=== PATIENT | female | born 1975 ===

== ENCOUNTER 2017-04-09 17:03 | Emergency (ER) | payer OTHER ==
[2017-04-09 17:08] VITALS: BP 151/91; PULSE 96; RESP 18; TEMP 98.8; O2SAT 100
--- NOTE | 2017-04-09 18:03 | ED PDOC ---
Lower Extremity Pain/Injury Time Seen by Provider: 04/09/17 17:25 Chief Complaint (Nursing): Lower Extremity Problem/Injury Chief Complaint (Provider): Lower Extremity Injury History Per: Patient History/Exam Limitations: no limitations Onset/Duration Of Symptoms: Hrs (8x hours ) Current Symptoms Are (Timing): Still Present Severity: Moderate Additional Complaint(s): 42 year old female with a pertinent medical history of asthma presents to the ED with complaints of right knee pain that started this morning. She states that she was leaving her house this morning to go her work, and she felt her right knee crack which caused her to have pain there all day. She reports that she is able to ambulate with a limp. She denies having any other injuries or complaints. PMD: Past Medical History Reviewed: Historical Data, Nursing Documentation, Vital Signs Vital Signs: Last Vital Signs Temp 98.8 F 04/09/17 17:06 Pulse 96 H 04/09/17 17:06 Resp 18 04/09/17 17:06 BP 151/91 H 04/09/17 17:06 Pulse Ox 100 04/09/17 17:06 - Medical History PMH: Asthma - Surgical History Surgical History: No Surg Hx - Family History Family History: States: No Known Family Hx - Social History Alcohol: None Drugs: Denies - Home Medications Home Medications: Ambulatory Orders Medication Instructions Recorded Naproxen [Naprosyn Tab] 375 mg PO Q8 PRN #21 tab 04/09/17 - Allergies Allergies/Adverse Reactions: Allergies Allergy/AdvReac Type Severity Reaction Status Date / Time No Known Allergies Allergy Verified 04/09/17 17:06 Review of Systems Musculoskeletal: Positive for: Leg Pain (right knee pain) Physical Exam - Reviewed Nursing Documentation Reviewed: Yes Vital Signs Reviewed: Yes - Physical Exam Appears: Positive for: Well, Non-toxic, No Acute Distress Head Exam: Positive for: ATRAUMATIC, NORMOCEPHALIC Skin: Positive for: Normal Color, Warm, Dry Cardiovascular/Chest: Positive for: Regular Rate, Rhythm Respiratory: Positive for: Normal Breath Sounds. Negative for: Respiratory Distress Extremity: Positive for: Normal ROM, Other (mild effusion to the right knee noted. able to flex and extend. no bony tenderness). Negative for: Tenderness, Swelling Neurologic/Psych: Positive for: Alert, Oriented (3x) - ECG O2 Sat by Pulse Oximetry: 100 (RA) Pulse Ox Interpretation: Normal - Progress ED Course And Treament: Knee xry right: no acute fx Placed in knee immobilizer and given crutch instructions. Medical Decision Making Medical Decision Makin:25 Initial impression: 42 year old female with pain in her right knee due to injury. Initial plan: * XRay knee right 3 views * reevaluation Scribe Attestation: Documented by Gena Vela, acting as a scribe for Tanya Heath PA-C. Provider Scribe Attestation: All medical record entries made by the Scribe were at my direction and personally dictated by me. I have reviewed the chart and agree that the record accurately reflects my personal performance of the history, physical exam, medical decision making, and the department course for this patient. I have also personally directed, reviewed, and agree with the discharge instructions and disposition. Disposition - Clinical Impression Clinical Impression: Knee injury - Patient ED Disposition Is Patient to be Admitted: No - Disposition Referrals: [facility] [Outside] Rod Rose III, MD [Staff Provider] - Disposition: Routine/Home Disposition Time: 18:59 Condition: FAIR Prescriptions: Naproxen [Naprosyn Tab] 375 mg PO Q8 PRN #21 tab PRN Reason: Pain, Moderate (4-7) Instructions: Knee Sprain (ED) Forms: [facility] ED School/Work Excuse
--- NOTE | 2017-04-10 10:59 | RAD ---
PROCEDURE: Right Knee Radiographs. HISTORY: Knee injury. Anatomic area of interest: Lateral femoral condylar region COMPARISON: None. FINDINGS: BONES: Normal. No fracture. JOINTS: Normal. No osteoarthritis. JOINT EFFUSION: None. OTHER FINDINGS: None. IMPRESSION: Unremarkable radiographs of the right knee.
== END 2017-04-09 18:59 | disposition home or self-care (01) ==
LOC: H.ER 17:03
DX: S89.92XA Unspecified injury of left lower leg, initial encounter (principal); X50.9XXA Other and unspecified overexertion or strenuous movements or postures, initial encounter; Y92.89 Other specified places as the place of occurrence of the external cause; J45.909 Unspecified asthma, uncomplicated

== ENCOUNTER 2017-04-20 06:33 | Observation (INO) | payer OTHER ==
[2017-04-20 06:50] VITALS: RESP 18
[2017-04-20] MEDS ORDERED: Sodium Chloride 0.9% 1,000 ML IV STA (07:04)
--- NOTE | 2017-04-20 07:17 | ED PDOC ---
Lower Extremity Pain/Injury Time Seen by Provider: 04/20/17 06:58 Chief Complaint (Nursing): Lower Extremity Problem/Injury Chief Complaint (Provider): Right Knee Injury History Per: Patient History/Exam Limitations: no limitations Onset/Duration Of Symptoms: Days (x10) Current Symptoms Are (Timing): Still Present Additional Complaint(s): Adelina Castillo is a 42 year old female with a history of asthma that presents to the ED status post injury to the right knee that occurred ten days ago. Patient reports that she has a torn meniscus and is complaining of right knee pain. Past Medical History Reviewed: Historical Data, Nursing Documentation, Vital Signs Vital Signs: Last Vital Signs Temp 98.1 F 04/20/17 06:43 Pulse 80 04/20/17 06:43 Resp 18 04/20/17 06:43 BP 119/82 04/20/17 06:43 Pulse Ox 100 04/20/17 06:43 - Medical History PMH: Asthma - Surgical History Surgical History: No Surg Hx - Family History Family History: States: Unknown Family Hx - Social History Current smoker - smoking cessation education provided: No Alcohol: None Drugs: Denies - Home Medications Home Medications: Ambulatory Orders Medication Instructions Recorded Naproxen [Naprosyn Tab] 375 mg PO Q8 PRN #21 tab 04/09/17 - Allergies Allergies/Adverse Reactions: Allergies Allergy/AdvReac Type Severity Reaction Status Date / Time No Known Allergies Allergy Verified 04/09/17 17:06 Review of Systems Musculoskeletal: Positive for: Leg Pain (right knee pain due to torn meniscus) Physical Exam - Reviewed Nursing Documentation Reviewed: Yes Vital Signs Reviewed: Yes - Physical Exam Appears: Positive for: Non-toxic, No Acute Distress Head Exam: Positive for: ATRAUMATIC, NORMOCEPHALIC Skin: Positive for: Normal Color, Warm Cardiovascular/Chest: Positive for: Regular Rate, Rhythm. Negative for: Murmur Respiratory: Positive for: Normal Breath Sounds. Negative for: Wheezing Gastrointestinal/Abdominal: Positive for: Normal Exam, Soft. Negative for: Tenderness Back: Positive for: Normal Inspection Extremity: Negative for: Normal ROM (pain on flexion of right knee), Deformity Neurologic/Psych: Positive for: Alert, Oriented. Negative for: Motor/Sensory Deficits - ECG O2 Sat by Pulse Oximetry: 100 (RA) Pulse Ox Interpretation: Normal Medical Decision Making Medical Decision Making: Impression: Right Knee Pain due to Torn Meniscus Plan: * EKG * Chest X-Ray * CMP * CBC * PT/INR * Urine Dip * Urine * Sodium Chloride 1000 mL at 100 mls/hr * Reevaluation Scribe Attestation: Documented by Zara Petersen, acting as a scribe for Arnav Moran MD. Provider Scribe Attestation: All medical record entries made by the Scribe were at my direction and personally dictated by me. I have reviewed the chart and agree that the record accurately reflects my personal performance of the history, physical exam, medical decision making, and the department course for this patient. I have also personally directed, reviewed, and agree with the discharge instructions and disposition. Disposition - Clinical Impression Clinical Impression: Meniscal injury - Patient ED Disposition Is Patient to be Admitted: Yes - Disposition Disposition Time: 07:24 Condition: FAIR - Pt Status Changed To: Hospital Disposition Of: Observation - POA Present On Arrival: None
[2017-04-20 07:41] LABS: BASO # 0.1 K/uL (0.0-0.2); BASO % 0.8 % (0.0-2.0); EOS # 0.2 K/uL (0.0-0.7); EOS % 1.8 % (0.0-4.0); HEMOGLOBIN 12.6 g/dL (12.0-16.0); LYMPH # 2.1 K/uL (1.0-4.3); LYMPH % 21.9 % (20.0-40.0); MEAN CELL VOLUME 80.7 fl (81.0-99.0); MEAN CORPUSCULAR HEMOGLOBIN 26.7 pg (27.0-31.0); MEAN PLATELET VOLUME 10.3 fl (7.2-11.7); MONO # 0.8 K/uL (0.0-0.8); MONO % 8.5 % (0.0-10.0); NEUT # 6.3 K/uL (1.8-7.0); NRBC % 0.1 % (0.0-0.0); RBC 4.73 Mil/uL (3.80-5.20); RED CELL DISTRIBUTION WIDTH 20.3 % (11.5-14.5); WHITE BLOOD COUNT 9.4 K/uL (4.8-10.8)
[2017-04-20 07:54] LABS: ALB/GLOB RATIO 1.3 (1.0-2.1); ALBUMIN 4.2 g/dL (3.5-5.0); ALT/SGPT 44 U/L (9-52); AST/SGOT 38 U/L (14-36); BLOOD UREA NITROGEN 14 mg/dl (7-17); CALCIUM 9.2 mg/dL (8.4-10.2); GFR AFRICAN-AMERICAN > 60; GFR NON-AFRICAN AMERICAN > 60
[2017-04-20 08:02] LABS: INR 0.9 (0.9-1.2); PROTHROMBIN TIME 10.4 Seconds (9.8-13.1)
--- NOTE | 2017-04-20 08:04 | CP.PCM.HP ---
History of Present Illness - History of Present Illness History of Present Illness: 42 y/o female with PMH asthma, anemia presented to ER with right knee pain. She states that she felt her knee crack about 1 week ago coming ourt of her house and since than has been having progressive pain and difficulty with ambulation.She is using crutches to ambulate. She has been taking naproxen for pain relief with little relied . She was evaluated by orthopedist as out patient that diagnosed her with meniscus tear. Today she is complaining of pain to right knee. denies any chest pain , SOB, palpitations, PND, orthopnea, urinary symptoms or changes in bowel movements. last meal yesterday @ 7 PM Allergies ; NKDA PMH ; Asthma, anemia Surgery; Cholecystectomy Medication; Ferrous sulfate, Albuterol PRN family history ; sister has breast cancer, Mother had HTN Social history ; lives in [place] with , has 3 children, works as house keeper, denies any smoking , ETOh or drug abuse, lives in a basement apartment with 4 stairs ROS ; 14 point review of system negative except above Present on Admission - Present on Admission Any Indicators Present on Admission: No Review of Systems - Review of Systems All systems: reviewed and no additional remarkable complaints except Past Patient History - Infectious Disease Hx of Infectious Diseases: None - Tetanus Immunizations Tetanus Immunization: Unknown - Past Medical History & Family History Past Medical History?: No Past Family History: Reviewed and not pertinent - Past Social History Smoking Status: Never Smoked Chewing Tobacco Use: No Cigar Use: No Alcohol: None Drugs: Denies Home Situation {Lives}: With Family Domestic Violence: Negative - CARDIAC Hx Cardiac Disorders: No - PULMONARY Hx Respiratory Disorders: No - NEUROLOGICAL Hx Neurological Disorder: No - HEENT Hx HEENT Problems: No - RENAL Hx Chronic Kidney Disease: No - ENDOCRINE/METABOLIC Hx Endocrine Disorders: No - HEMATOLOGICAL/ONCOLOGICAL Hx Blood Disorders: Yes (Anemia) - INTEGUMENTARY Hx Dermatological Problems: No - MUSCULOSKELETAL/RHEUMATOLOGICAL Hx Musculoskeletal Disorders: No - GENITOURINARY/GYNECOLOGICAL Hx Genitourinary Disorders: No - PSYCHIATRIC Hx Psychophysiologic Disorder: No - SURGICAL HISTORY Hx Surgeries: No - ANESTHESIA Hx Anesthesia: No Meds Allergies/Adverse Reactions: Allergies Allergy/AdvReac Type Severity Reaction Status Date / Time No Known Allergies Allergy Verified 04/09/17 17:06 Physical Exam - Constitutional Appears: Non-toxic, No Acute Distress - Head Exam Head Exam: ATRAUMATIC, NORMAL INSPECTION, NORMOCEPHALIC - Eye Exam Eye Exam: EOMI, Normal appearance, PERRL Pupil Exam: NORMAL ACCOMODATION - ENT Exam ENT Exam: Mucous Membranes Moist, Normal Exam - Neck Exam Neck exam: Positive for: Full Rom, Normal Inspection - Respiratory Exam Respiratory Exam: Clear to Auscultation Bilateral, NORMAL BREATHING PATTERN. absent: Rales, Rhonchi, Wheezes - Cardiovascular Exam Cardiovascular Exam: REGULAR RHYTHM, RRR, +S1, +S2. absent: JVD - GI/Abdominal Exam GI & Abdominal Exam: Normal Bowel Sounds, Soft. absent: Distended, Guarding, Rebound, Tenderness - Rectal Exam Rectal Exam: Deferred - Extremities Exam Extremities exam: Positive for: normal capillary refill, normal inspection, tenderness (to right knee with decreased ROM ), pedal pulses present. Negative for: calf tenderness, pedal edema - Back Exam Back exam: NORMAL INSPECTION - Neurological Exam Neurological exam: Alert, CN II-XII Intact, Oriented x3, Reflexes Normal - Psychiatric Exam Psychiatric exam: Normal Affect, Normal Mood - Skin Skin Exam: Dry, Intact, Normal Color, Warm Results - Vital Signs Recent Vital Signs: Last Vital Signs Temp 98.1 F 04/20/17 07:48 Pulse 80 04/20/17 07:48 Resp 18 04/20/17 07:48 BP 119/82 04/20/17 07:48 Pulse Ox 100 04/20/17 07:24 - Labs Result Diagrams: 04/20/17 07:35 Labs: Laboratory Results - last 24 hr 04/20/17 07:35 WBC 9.4 RBC 4.73 Hgb 12.6 Hct 38.2 MCV 80.7 L MCH 26.7 L MCHC 33.0 RDW 20.3 H Plt Count 205 MPV 10.3 Neut % (Auto) 67.0 Lymph % (Auto) 21.9 Shoshone % (Auto) 8.5 Eos % (Auto) 1.8 Baso % (Auto) 0.8 Neut # 6.3 Lymph # 2.1 Shoshone # 0.8 Eos # 0.2 Baso # 0.1 - EKG Data EKG shows normal: Sinus rhythm Rate: Normal Assessment & Plan (1) Meniscal injury Status: Acute - Assessment and Plan (Free Text) Assessment: 42 y/o female with PMH asthma, anemia presented to ER with right knee pain. She states that she felt her knee crack about 1 week ago coming ourt of her house and since than has been having progressive pain and difficulty with ambulation.She is using crutches to ambulate. She has been taking naproxen for pain relief with little relied . She was evaluated by orthopedist as out patient that diagnosed her with meniscus tear. Today she is complaining of pain to right knee. denies any chest pain , SOB, palpitations, PND, orthopnea, urinary symptoms or changes in bowel movements. last meal yesterday @ 7 PM 1. Meniscal injury ortho consult keep NPO for now pain management waiting rest of lab tests and CXR to be resulted but based on her history patient is low risk of surgery
[2017-04-20] MEDS ORDERED: Bupivacaine 0.5% Inj(30mL) ONE (08:34)
[2017-04-20] MEDS ORDERED: Lidocaine 1% Inj (20ml) ONE (08:34)
[2017-04-20] MEDS ORDERED: Bacitracin Ointment 30 GM TUBE ONE (08:35)
--- NOTE | 2017-04-20 10:16 | RAD ---
HISTORY: preop COMPARISON: No prior. TECHNIQUE: Chest PA and lateral FINDINGS: LUNGS: The lungs are well inflated and clear. PLEURA: No significant pleural effusion identified. No pneumothorax apparent. CARDIOVASCULAR: Normal. OSSEOUS STRUCTURES: No significant abnormalities. VISUALIZED UPPER ABDOMEN: Normal. OTHER FINDINGS: None. IMPRESSION: No active pulmonary disease.
--- NOTE | 2017-04-20 10:57 | CARD ---
APPROVED REPORT EKG Measurement Heart [id number] <Conclusion> Normal sinus rhythm Normal ECG
[2017-04-20] MEDS ORDERED: Lactated Ringer's 1,000 ML IV ONE ×2 (12:22→17:00)
[2017-04-20] MEDS ORDERED: MethylPREDNISolone Depo 40 mg/ml Inj ONE (12:31)
[2017-04-20] MEDS ORDERED: Sodium Chloride 0.9% 0 ML IV ONE (12:31)
[2017-04-20] MEDS ORDERED: Ropivacaine 0.5% 30ML IV ONE (12:58)
[2017-04-20] MEDS ORDERED: Lidocaine 1% Inj (20ml) IJ ONE (13:25)
[2017-04-20] MEDS ORDERED: Bacitracin OINT 15GM TOP ONE (15:00)
[2017-04-20] MEDS ORDERED: Bupivacaine 0.25%-Epinephrine 1:200,000 (30 ml) Inj ONE (15:17)
[2017-04-20] MEDS ORDERED: HYDROmorphone 0.5 mg/0.5 ml ISec IVP PRN (15:56)
[2017-04-20] MEDS ORDERED: Lactated Ringer's 1,000 ML IV SCH (15:56)
--- NOTE | 2017-04-20 16:09 | PCM.ANESB3 ---
Femoral Nerve Block - Femoral Nerve Block Date of Procedure: 04/20/17 Anesthesiologist: Dr. Sommer Pre-Procedure Diagnosis: S/P right knee arthroscopy with ACL repair Post-Procedure Diagnosis: S/P right knee arthroscopy with ACL repair Procedure Performed: Femoral Nerve Block Right - Procedure Femoral Nerve Block: The procedure was explained to the patient that it is for the post-operative pain management. Consent was obtained after a thorough discussion with the patient regarding the benefits and possible complications of local anesthetic block of the femoral nerve at the inguinal crease area. The patient was brought to the operating room and standard monitors were applied. Time-out was held with the circulating nurse to confirm the correct surgery and the appropriate block. After the surgery, while the patient is still under general anesthesia in supine position with fully extended lower extremities and the right groin exposed. The femoral artery was then carefully palpated. The ultrasound transducer was then applied to this area in the transverse plane and the femoral nerve was visualized lateral to the femoral artery and underneath the fascia iliaca. After thorough identification, the inguinal crease area was prepped with Chloraprep solution. At this point, a #21 gauge Stimuplex 4-inch needle was inserted immediately lateral to the femoral artery pulse at the inguinal crease and advanced perpendicularly. The needle was inserted to the ultrasound transducer in-plane towards the femoral nerve in a [id number] direction. Needle advancement was performed carefully under direct ultrasound visualization. Nerve stimulator was used and twitch of the quadriceps muscle was obtained at current of 0.3MA. After negative aspiration, 5cc of 0.325% bupivacaine with 1:200,000 epinephrine was injected and this was followed with 15cc of 0.325% bupivacaine with 1:200, 000 epinephrine. Under ultrasound guidance the local anesthetics were observed spreading below fascia iliaca and around the femoral nerve. The needle was removed intact and sterile dressing was applied. The patient had stable vital signs, was conscious and in no apparent distress. The patient tolerated the femoral nerve block well with stable vital signs and was awaken from anesthesia. Then was transported to PACU in stable condition.
--- NOTE | 2017-04-20 16:22 | PCM.ANESB2 ---
Popliteal Nerve Block - Popliteal Nerve Block Date of Procedure: 04/20/17 Anesthesiologist: Dr. Sommer Pre-Procedure Diagnosis: S/P right knee arhtroscopy with ACL repair Post-Procedure Diagnosis: S/P right knee arhtroscopy with ACL repair Procedure Performed: Popliteal Nerve Block Right - Procedure Popliteal Nerve Block: This procedure was explained to the patient that it is for post-operative pain management. Consent was obtained after a thorough discussion with the patient regarding the benefits and possible complications of local anesthetic block of the sciatic nerve at the popliteal level. The patient was brought to the operating room and standard monitors are applied. Time-out was held with the circulating nurse to confirm the correct side and the appropriate block. After the surgery while still under general anesthesia, patient's operative leg was gently raised for the subgluteal approach. The skin approximately mid point between the ischial tuberosity and the greater trochanter was marked. After identification, the subgluteal area was prepped with Chloraprep solution. At this point, a # 21 gauge Stimuplex insulated 4 inch needle was inserted into pre-marked area and advanced in a perpendicular direction. Nerve stimulator was used and dorsiflexion of the right foot was elicited at a current of 0.4MA. After repeated negative aspiration, 5cc of 0.325% bupivacaine with 1:200,000 epinephrine was injected. Then followed by 15cc of 0.325% bupivacaine with 1:200 ,000 epinephrine. The needle was removed intact and sterile dressing was applied. The patient tolerated the sciatic nerve block well with stable vital signs and was subsequently awaken from anesthesia. Then transported to PACU in stable condition.
--- NOTE | 2017-04-20 16:28 | PCM.SURG1 ---
Surgeon's Initial Post Op Note - Surgeon's Notes Surgeon: Milton Trouble Shooter: JOANNE Nazario Type of Anesthesia: General Endo, Block Regional Anesthesia Administered By: dr lynch[ Pre-Operative Diagnosis: post-traumatic derangement Right knee Operative Findings: degeneration/traumatic incompetetnce/laxity/tear ACL. tear medial meniscus. tear inner free edge lateral meniscus. tricompartmental synovitis Post-Operative Diagnosis: as above Operation Performed: arthroscopic ACL recostruction with tibial tendon allograft. arthroscopic partial medial/partial lateral meniscectomy. arthroscopic tricompartmental synovectomy. allograft bone graft. application knee immobilizer Specimen/Specimens Removed: cartilage/tendon/bone Estimated Blood Loss: EBL {In ML}: 15 Blood Products Given: N/A Drains Used: No Drains Post-Op Condition: Good Date of Surgery/Procedure: 04/20/17 Time of Surgery/Procedure: 13:30 (time in room/anaesthesia indcution time 12:22/ )
--- NOTE | 2017-04-20 17:11 | PCM.OP ---
Operative Report - Operative Report Date of Surgery/Procedure: 04/20/17 Time of Surgery/Procedure: 13:30 Surgeon: Milton Butter Production Supervisor: JOANNE Miller Anesthesia/Sedation: MILAN ANDERSON Pre-Operative Diagnosis: post traumatic derangement R knee Post-Operative Diagnosis: Degeneration/incomptetencve ACL (post rtaumatic tear) . tear medial meniscus/tear lateral meniscus. tricompartmental synovitis Indication for Surgery: post traumtic fall pt presetns to hospital thru ER with severe pain and inability to ambulate Operative Findings: degeneration/tear/incompetetnce ACL with traumatic injury. tear medial /lateral meniscus. tricompartmental synovitis Procedure/Operation Description: arthroscopic ACL reconstruction. arthroscopic partial medial/lateral meniscectomy. arthroscopic partial tricompartmental synovectomy. allograft bone graft to tibia. Operative procedure. This is the operative note 4 patient Adelina Castillo. after having obtained informed consent ,, from the patient and her through the culturally competent silver spray worker [employer],, after the satisfactory induction of general endotracheal anesthesia by Dr. Anderson, after having identified side site and procedure in a critical pause/ timeout, the patient identified as Adelina Castillo right lower extremity is prepped and free draped in the usual fashion for arthroscopic surgery.. After sterilely prepping and draping,, after having identified side and site and procedure the right lower extremity is exsanguinated using a 6 inch Esmarch bandage. the joint is insufflated with 10 mL of 1% lidocaine without epinephrine using #11 blade followed by spreading followed by introduction of the blunt trocar and arthroscope was introduced. There is found to be a severe posttraumatic synovitis.. Triangulation is accomplished using a #18-gauge spinal needle followed by #11 blade, spreading and introduction of the bblunt trocar. A careful partial tricompartmental synovectomy is accomplished,, both to ensure visualization and to ablate inflammatory tissue.. With the surgeon exerting a gentle valgus stress so as not further damage the MCLthe medial compartment is exposed to advantage. There is found to be a tear of the posterior horn of the medial meniscus. Please refer to the MRI EVALUATION With the arthroscope anteromedially the deep posterior horn is exposed. Using a combination of the up-biting basket forceps and the arthroscopic shaver, a partial medial meniscectomy is accomplished. The inner free edge is smoothed using arthroscopic shave and the arthroscopic wand. There is found to be no evidence of peripheral separatio. Please refer to the video photographs.. At this point in time, the anterocentral portal , a notch plasty was accomplished using arthroscopic bur at the medial wall of the lateral femoral condyle At this point in time ,thorough debridement of the ACL stump is accomplished. The tibial aiming guide is set to 55 and the proximal medial tibia skin is marked. 11 1/2 inch incision is descrikbed . The skin incision was c and subcutaneous tissue. The periosteum was elevated. A bare area is described. At this point in time the guide pin was introduced through the proximal tibia.Reaming commenced with a 10 millimeter reamer. The [id number] guide is employed to introduce the pin into the femur. Reaming commences to the femur to a depth of 30 mm. the tibial tendon allograf was prepared at the back table. The tibial tendon allograft is prepared using a modified whip stitch. The allograft was placed on the women designer. The bullet tipped women designer is introduced through the tibial tunne into the femoral tunnel. The anchor was deployed using ratchet mechanism. The women designer was removed. The 2 tails of the allograft and brought out through the tibia tunnel.. Dilators were placed into the tibial tunnel to 10 mm in diameter. The tibial anchor was de with tension placed on the 2 tails of the suture using the tensioning device.. The tibial anchor was deployed without consequence. Allograft bone grafting is carried out to the tibial tunnel. Stability is found to be excellent. 2 anterior drawer and pivot shift. Closure of the periosteum is with #1 Vicryl followed by two zero quill and you for skin. The arthroscope was placed in the lateral portal..With The knee in [id number] position lateral compartment is exposed. This found to be a tear of the free edge of the lateral meniscus. Partial lateral meniscectomy is accomplished using the side-biting basket forceps and the 3.4 mm suction punch. Inner free edge is smoothed using the [employer] serfas wand. Closure of the portals is with interrupted Vicryl and nylon.. Mehdi Meraz compression and knee immobilizer is applied.. It should be noted prior to the procedure, examination under anesthesia was accomplished. [facility] tolerated the procedure well. This is the end of the operative report on a patient named Adelina Rose dictating 04/20/17 Estimated Blood Loss: 20 cc Blood Replaced: 0 Sponge/Instrument Count: correct Drains: 0 Complications: None Specimen: synivum/cartilage/tendon Discharge & Condition: stable condition/d/c same day surgery
--- NOTE | 2017-04-20 18:20 | RAD ---
PROCEDURE: Right Knee Radiographs. HISTORY: s/p rt. knee arthroscopy COMPARISON: None. FINDINGS: BONES: Normal. No fracture. Lucency in the tibial plateau region perhaps the sequela of ACL surgery. JOINTS: Normal. No osteoarthritis. JOINT EFFUSION: None. OTHER FINDINGS: None. IMPRESSION: Satisfactory postoperative status.
[2017-04-20 18:44] VITALS: O2SAT 95
[2017-04-20 18:45] VITALS: BP 140/77; PULSE 93; TEMP 97.8
[2017-04-21] MEDS ORDERED: Pantoprazole 40 mg EC Tab PO SCH (09:00)
== END 2017-04-20 19:54 | disposition home or self-care (01) ==
LOC: H.ER 06:33 → H.ERHOLD 07:18 → H.MEDSURG1 09:22
PROVIDERS: ADMIT Hospitalist; ATTEND Hospitalist
DX: S83.511A Sprain of anterior cruciate ligament of right knee, initial encounter (principal); S83.281A Other tear of lateral meniscus, current injury, right knee, initial encounter; S83.241A Other tear of medial meniscus, current injury, right knee, initial encounter; W19.XXXA Unspecified fall, initial encounter; Y93.9 Activity, unspecified; Y92.9 Unspecified place or not applicable; J45.909 Unspecified asthma, uncomplicated